=== PATIENT | male | born 1985 ===

== ENCOUNTER 2016-10-30 09:43 | Emergency (ER) | payer MEDICAID ==
[2016-10-30 09:44] VITALS: BMI 19.8
[2016-10-30 10:15] VITALS: RESP 20
--- NOTE | 2016-10-30 11:22 | ED PDOC ---
Arrival/HPI - General Chief Complaint: Abnormal Skin Integrity Time Seen by Provider: 10/30/16 11:19 Historian: Patient - History of Present Illness Narrative History of Present Illness (Text): 10/30/16 12:21 Patient with a one-week history of pruritic rash to the arms bilaterally. Patient states he he may have a history of MRSA. Patient states the rash starts out as a small pustule and he scratches it and the rash spreads. Patient denies numbness weakness or tingling in the family. Denies fevers or chills. Patient states no one else has similar symptoms. Patient states he's had something similar in the past and he applied hydrocortisone cream and the rash resolved. Denies fevers or chills. Denies pain. No other complaints Past Medical History - Provider Review Nursing Documentation Reviewed: Yes - Travel History Have you recently traveled outside [place] w/in the past 3 mons?: No - Past History Past History: No Previous - Infectious Disease Hx of Infectious Diseases: None - Tetanus Immunization Tetanus Immunization: Unknown - Past Medical History Past Medical History: No Previous - Cardiac Hx Cardiac Disorders: No - Pulmonary Hx Respiratory Disorders: No - Neurological Hx Neurological Disorder: No - HEENT Hx HEENT Disorder: No - Renal Hx Renal Disorder: No - Endocrine/Metabolic Hx Endocrine Disorders: No - Hematological/Oncological Hx Blood Disorders: No - Integumentary Hx Dermatological Disorder: No - Musculoskeletal/Rheumatological Hx Musculoskeletal Disorders: No - Gastrointestinal Hx Gastrointestinal Disorders: No - Genitourinary/Gynecological Hx Genitourinary Disorders: No - Psychiatric Hx Psychophysiologic Disorder: No Hx Anxiety: Yes Hx Bipolar Disorder: No Hx Depression: Yes Hx Emotional Abuse: No Hx Hallucinations: No Hx Panic Disorder: No Hx Post Traumatic Stress Disorder: No Hx Psychosis: No Hx Physical Abuse: No Hx Schizophrenia: No Hx Sexual Abuse: No Hx Substance Use: Yes (marijuana) - Past Surgical History Past Surgical History: No Previous - Anesthesia Hx Anesthesia: No Hx Anesthesia Reactions: No Hx Malignant Hyperthermia: No - Suicidal Assessment Feels Threatened In Home Enviroment: No Family/Social History - Physician Review Nursing Documentation Reviewed: Yes Family/Social History: Unknown Family HX Smoking Status: Former Smoker Hx Alcohol Use: No Hx Substance Use: Yes (marijuana) Hx Substance Use Treatment: No Allergies/Home Meds Allergies/Adverse Reactions: Allergies shellfish derived Allergy (Verified 10/30/16 10:09) ANAPHYLAXIS sulfamethoxazole [From Bactrim] Allergy (Verified 10/30/16 10:09) RASH trimethoprim [From Bactrim] Allergy (Verified 10/30/16 10:09) RASH Home Medications: Home Meds Medication Instructions Recorded Confirmed QUEtiapine [SEROquel] 50 mg PO HS 10/30/16 10/30/16 Review of Systems - Review of Systems Constitutional: absent: Fatigue, Fevers Respiratory: absent: SOB, Cough Cardiovascular: absent: Chest Pain, Palpitations Gastrointestinal: absent: Abdominal Pain, Nausea, Vomiting Genitourinary Male: absent: Dysuria, Frequency, Hematuria Musculoskeletal: absent: Arthralgias, Back Pain Skin: Rash, Pruritis Neurological: absent: Headache, Dizziness Psychiatric: absent: Anxiety, Depression, Suicidal Ideation Physical Exam Vital Signs Reviewed: Yes Vital Signs Temp Pulse Resp BP Pulse Ox 10/30/16 11:49 98 F 75 20 110/75 100 10/30/16 10:03 98.3 F 60 20 105/68 97 Temperature: Afebrile Blood Pressure: Normal Pulse: Regular Respiratory Rate: Normal Appearance: Positive for: Well-Appearing, Non-Toxic, Comfortable Pain Distress: None Mental Status: Positive for: Alert and Oriented X 3 - Systems Exam Head: Present: Atraumatic Mouth: Present: Moist Mucous Membranes Neck: Present: Normal Range of Motion Respiratory/Chest: Present: Clear to Auscultation, Good Air Exchange. No: Respiratory Distress, Accessory Muscle Use Cardiovascular: Present: Regular Rate and Rhythm, Normal S1, S2. No: Murmurs Upper Extremity: Present: Normal ROM. No: Tenderness, Swelling, Erythema Neurological: Present: GCS=15 Skin: Present: Warm, Dry, Rashes (multiple sporatic erythematous pustules on forearms bilaterally. right hand along dorsal aspect there is a area of multiple erythematous papules, no vesicles. non tender. ), Normal Color Medical Decision Making ED Course and Treatment: 10/30/16 pt is non toxic well appearing; no distress. c/o rash to both arms and right hand x 1 week. no trauma or injury. afebrile. will treat patient to cover for MRSA as patient with multiple pustules noted to both forearms and hx of multiple abscess in the past. will cover with hydrocortisone to the rash on the right hand due to recent exposure to new gloves. no pustules, no vesicles. advised patient to f/u with internet architect and pmd and return if symptoms worsen, persist or if new symptoms develop. Patient verbalizes understanding of discharge instructions and need for immediate followup. impression; rash clindamycin 3 times daily x 7 days hydrocortisone apply sparingly twice daily to affected area follow up with the primary care physician within the next 2 days follow up with the internet architect within the next 2 days return if symptoms worsen,persist or if new symptoms develop Disposition/Present on Arrival - Present on Arrival Any Indicators Present on Arrival: No History of DVT/PE: No History of Uncontrolled Diabetes: No Urinary Catheter: No History of Decub. Ulcer: No History Surgical Site Infection Following: None - Disposition Have Diagnosis and Disposition been Completed?: Yes Diagnosis: Rash Disposition: HOME/ ROUTINE Disposition Time: 11:19 Patient Plan: Discharge Condition: GOOD Discharge Instructions (ExitCare): Acute Rash (ED) Additional Instructions: clindamycin 3 times daily x 7 days hydrocortisone apply sparingly twice daily to affected area follow up with the primary care physician within the next 2 days follow up with the internet architect within the next 2 days return if symptoms worsen,persist or if new symptoms develop. Prescriptions: Clindamycin [Cleocin] 150 mg PO TID #21 cap Hydrocortisone 1% Cream [Cortizone 1% Cream] 1 appl TP BID #1 tube Referrals: Kamilla Conley MD [Staff Provider] - Follow up with primary Estuardo Hook MD [Staff Provider] - Follow up with primary
[2016-10-30 11:50] VITALS: BP 110/75; PULSE 75; TEMP 98; O2SAT 100
== END 2016-10-30 11:52 | disposition home or self-care (01) ==
LOC: ED 09:43
DX: R21 Rash and other nonspecific skin eruption (principal)

== ENCOUNTER 2017-02-27 14:24 | Emergency (ER) | payer MEDICAID ==
--- NOTE | 2017-02-27 14:38 | ED PDOC ---
Arrival/HPI - General Time Seen by Provider: 02/27/17 14:37 Historian: Patient - History of Present Illness Narrative History of Present Illness (Text): 02/27/17 14:37 31 y/o male, pmh including perianal abscess, allergic to shellfish and sulfa, c/ o rt. upper eyelid swelling x 2 days. Pt. has no fall or trauma, no change in vision, no painful movement of the eye, admits mild discharge, no headache, no night sweat, no fever or chills, no other medical or psychological complaints. Past Medical History - Provider Review Nursing Documentation Reviewed: Yes - Past History Past History: No Previous - Infectious Disease Hx of Infectious Diseases: None - Tetanus Immunization Tetanus Immunization: Unknown - Past Medical History Past Medical History: No Previous - Cardiac Hx Cardiac Disorders: No - Pulmonary Hx Respiratory Disorders: No - Neurological Hx Neurological Disorder: No - HEENT Hx HEENT Disorder: No - Renal Hx Renal Disorder: No - Endocrine/Metabolic Hx Endocrine Disorders: No - Hematological/Oncological Hx Blood Disorders: No - Integumentary Hx Dermatological Disorder: No - Musculoskeletal/Rheumatological Hx Musculoskeletal Disorders: No - Gastrointestinal Hx Gastrointestinal Disorders: No - Genitourinary/Gynecological Hx Genitourinary Disorders: No - Psychiatric Hx Psychophysiologic Disorder: Yes Hx Anxiety: No Hx Bipolar Disorder: Yes Hx Substance Use: Yes (marijuana) - Past Surgical History Past Surgical History: No Previous - Anesthesia Hx Anesthesia: No Hx Anesthesia Reactions: No Hx Malignant Hyperthermia: No - Suicidal Assessment Feels Threatened In Home Enviroment: No Family/Social History - Physician Review Nursing Documentation Reviewed: Yes Family/Social History: Unknown Family HX Smoking Status: Heavy Smoker > 10 Cigarettes Daily Hx Alcohol Use: No Hx Substance Use: Yes (marijuana) Hx Substance Use Treatment: No Allergies/Home Meds Allergies/Adverse Reactions: Allergies shellfish derived Allergy (Verified 10/30/16 10:09) ANAPHYLAXIS sulfamethoxazole [From Bactrim] Allergy (Verified 10/30/16 10:09) RASH trimethoprim [From Bactrim] Allergy (Verified 10/30/16 10:09) RASH Home Medications: Home Meds Medication Instructions Recorded Confirmed QUEtiapine [SEROquel] 100 mg PO HS 10/30/16 02/27/17 Review of Systems - Review of Systems Constitutional: absent: Fatigue, Fevers Eyes: absent: Vision Changes ENT: absent: Hearing Changes Respiratory: absent: SOB, Cough Cardiovascular: absent: Chest Pain Gastrointestinal: absent: Abdominal Pain, Nausea, Vomiting Skin: Skin Lesions. absent: Rash, Pruritis, Laceration, Abscess, Ulcer Neurological: absent: Headache Physical Exam Vital Signs Temp Pulse Resp BP Pulse Ox 02/27/17 14:46 98.3 F 89 18 115/69 97 - Systems Exam Head: Present: Atraumatic, Normocephalic Pupils: Present: PERRL Extroacular Muscles: Present: EOMI, Other (Rt. upper eyelid visible stye noted on the medial aspect with no periorbital cellulitis, no painful movement of the eye. ) Conjunctiva: Present: Normal Ears: Present: NORMAL TM, Normal Canal. No: Erythema Mouth: Present: Moist Mucous Membranes Neck: Present: Normal Range of Motion Respiratory/Chest: Present: Clear to Auscultation, Good Air Exchange. No: Respiratory Distress, Accessory Muscle Use Cardiovascular: Present: Regular Rate and Rhythm, Normal S1, S2. No: Murmurs Abdomen: Present: Normal Bowel Sounds. No: Tenderness, Distention, Peritoneal Signs Back: Present: Normal Inspection Upper Extremity: Present: Normal Inspection. No: Cyanosis, Edema Lower Extremity: Present: Normal Inspection. No: Edema Neurological: Present: GCS=15, Speech Normal, Motor Func Grossly Intact, Gait Normal, Memory Normal Skin: Present: Warm, Dry, Normal Color. No: Rashes Psychiatric: Present: Alert, Oriented x 3, Normal Insight, Normal Concentration Medical Decision Making ED Course and Treatment: 02/27/17 14:47 -Discharge home with opthalmic antibiotic oinment, cold compress, take tylenol or motrin for pain, follow up with your own pmd and opthalmologist within 2 days , return to the ER for any new or worsening signs or symptoms. 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 Disposition/Present on Arrival - Present on Arrival Any Indicators Present on Arrival: No History of DVT/PE: No History of Uncontrolled Diabetes: No Urinary Catheter: No History of Decub. Ulcer: No History Surgical Site Infection Following: None - Disposition Have Diagnosis and Disposition been Completed?: Yes Diagnosis: Stye Disposition: HOME/ ROUTINE Disposition Time: 14:48 Patient Plan: Discharge Condition: GOOD Additional Instructions: -Discharge home with opthalmic antibiotic oinment, cold compress, take tylenol or motrin for pain, follow up with your own pmd and opthalmologist within 2 days , return to the ER for any new or worsening signs or symptoms. Prescriptions: Erythromycin 0.5% [Ilytocin] 1 appful OD TID #5 g Referrals: Maury Rodriguez MD [Staff Provider] - Follow up with primary Forms: WORK NOTE
[2017-02-27 14:43] VITALS: BMI 18.4
[2017-02-27 14:47] VITALS: BP 115/69; PULSE 89; RESP 18; TEMP 98.3; O2SAT 97
== END 2017-02-27 15:05 | disposition home or self-care (01) ==
LOC: ED 14:24
DX: H00.011 Hordeolum externum right upper eyelid (principal)

== ENCOUNTER 2017-07-27 16:53 | Emergency (ER) | payer MEDICAID ==
[2017-07-27 16:53] VITALS: BMI 18.4
[2017-07-27 17:05] VITALS: TEMP 97.8
--- NOTE | 2017-07-27 20:09 | ED PDOC ---
Arrival/HPI - General Historian: Patient EM Caveat: Acuity of Condition <Shelby Renner - Last Filed: 07/28/17 00:14> <Sadiq Hough - Last Filed: 07/28/17 02:58> - General Chief Complaint: Chest Pain Time Seen by Provider: 07/27/17 17:51 - History of Present Illness Narrative History of Present Illness (Text): 07/27/17 19:54 Pt is a 31 yo M complaining of severe right axillary pain that radiates down the medial aspect of the arm and towards the chest x 1 week. Over a week ago, he noticed at work that he had a raised, red vein going from the armpit down to the elbow and thought he had a boil. Went to [facility] Emergency department and was evaluated via labs and US but did not find anything definitive. Pt was placed on what he thinks is clindamycin which helped resolved the redness but the pain remained and intensified. Denies shortness of breath, chest pain, nausea, vomiting or diarrhea, fever chills. Stats that when he sleeps, his arm with go to sleep (Shelby Renner) Past Medical History - Provider Review Nursing Documentation Reviewed: Yes - Travel History Have you recently traveled outside [place] w/in the past 3 mons?: Yes - Past History Past History: No Previous - Infectious Disease Hx of Infectious Diseases: None - Tetanus Immunization Tetanus Immunization: Unknown - Past Medical History Past Medical History: No Previous - Cardiac Hx Cardiac Disorders: No - Pulmonary Hx Respiratory Disorders: No - Neurological Hx Neurological Disorder: No - HEENT Hx HEENT Disorder: No - Renal Hx Renal Disorder: No - Endocrine/Metabolic Hx Endocrine Disorders: No - Hematological/Oncological Hx Blood Disorders: No - Integumentary Hx Dermatological Disorder: No - Musculoskeletal/Rheumatological Hx Musculoskeletal Disorders: No - Gastrointestinal Hx Gastrointestinal Disorders: No - Genitourinary/Gynecological Hx Genitourinary Disorders: No - Psychiatric Hx Psychophysiologic Disorder: Yes Hx Anxiety: No Hx Bipolar Disorder: Yes Hx Substance Use: Yes (marijuana) - Past Surgical History Past Surgical History: No Previous - Anesthesia Hx Anesthesia: No Hx Anesthesia Reactions: No Hx Malignant Hyperthermia: No - Suicidal Assessment Feels Threatened In Home Enviroment: No <Shelby Renner - Last Filed: 07/28/17 00:14> Family/Social History - Physician Review Nursing Documentation Reviewed: Yes Family/Social History: Unknown Family HX Smoking Status: Heavy Smoker > 10 Cigarettes Daily Hx Alcohol Use: No Hx Substance Use: Yes (marijuana) Hx Substance Use Treatment: No <Shelby Renner - Last Filed: 07/28/17 00:14> Allergies/Home Meds <Shelby Renner - Last Filed: 07/28/17 00:14> <Sadiq Hough - Last Filed: 07/28/17 02:58> Allergies/Adverse Reactions: Allergies shellfish derived Allergy (Verified 07/27/17 17:02) ANAPHYLAXIS sulfamethoxazole [From Bactrim] Allergy (Verified 07/27/17 17:02) RASH trimethoprim [From Bactrim] Allergy (Verified 07/27/17 17:02) RASH Home Medications: Home Meds Medication Instructions Recorded Confirmed Clindamycin [Cleocin] 150 mg PO Q6H 07/27/17 07/27/17 Review of Systems - Physician Review All systems were reviewed & negative as marked: Yes - Review of Systems Constitutional: Normal Eyes: Normal ENT: Normal Respiratory: Normal Cardiovascular: Normal Gastrointestinal: Normal Genitourinary Male: Normal Musculoskeletal: Normal Skin: Other (right medial arm pain and axilla pain) Neurological: Normal Endocrine: Normal Hemo/Lymphatic: Normal Psychiatric: Normal <Shelby Renner - Last Filed: 07/28/17 00:14> Physical Exam Vital Signs Reviewed: Yes Temperature: Afebrile Blood Pressure: Normal Pulse: Regular Respiratory Rate: Normal Appearance: Positive for: Well-Appearing, Non-Toxic, Comfortable Pain Distress: None Mental Status: Positive for: Alert and Oriented X 3 - Systems Exam Head: Present: Atraumatic, Normocephalic Pupils: Present: PERRL Extroacular Muscles: Present: EOMI Conjunctiva: Present: Normal Mouth: Present: Moist Mucous Membranes Neck: Present: Normal Range of Motion Respiratory/Chest: Present: Clear to Auscultation, Good Air Exchange. No: Respiratory Distress, Accessory Muscle Use Cardiovascular: Present: Regular Rate and Rhythm, Normal S1, S2. No: Murmurs Abdomen: Present: Normal Bowel Sounds. No: Tenderness, Distention, Peritoneal Signs Back: Present: Normal Inspection Upper Extremity: Present: Normal Inspection, Normal ROM, NORMAL PULSES, Tenderness (right axilla and medial aspect of proximal upper extremity), Neurovascularly Intact, Capillary Refill < 2s, Other (right proximal UE, medial contusion and palpable cord). No: Cyanosis, Edema Lower Extremity: Present: Normal Inspection. No: Edema Neurological: Present: GCS=15, CN II-XII Intact, Speech Normal, Motor Func Grossly Intact, Normal Sensory Function Skin: Present: Warm, Dry, Normal Color. No: Rashes Psychiatric: Present: Alert, Oriented x 3, Normal Insight, Normal Concentration <Shelby Renner - Last Filed: 07/28/17 00:14> Vital Signs Temp Pulse Resp BP Pulse Ox 07/27/17 23:25 70 16 116/87 200 H 07/27/17 17:04 97.8 F 67 18 110/75 100 Medical Decision Making - Lab Interpretations I have reviewed the lab results: Yes Interpretation: All labs normal - EKG Interpretation Interpreted by ED Physician: Yes (NSR) <Shelby Renner - Last Filed: 07/28/17 00:14> <Sadiq Hough - Last Filed: 07/28/17 02:58> ED Course and Treatment: 07/27/17 20:09 Impression: Pt is a 31 yo M complaining of severe right axillary pain that radiates down the medial aspect of the arm and towards the chest x 1 week. Plan: standard labs to r/o infection ekg to r/o cardiac events Progress Note: Pt was assessed by Dr. Hough who advised doppler for right medial arm; likely has superficial thrombophlebitis Duplex ordered and pending Dispo on toradol and zantac x 5 days with instructions to apply warm compress to arm F/U w Primary 07/27/17 22:12 (Shelby Renner) - Lab Interpretations Lab Results: 07/27/17 20:10 07/27/17 20:10 Lab Results 07/27/17 20:10: Sodium 137, Potassium 4.1, Chloride 103, Carbon Dioxide 24, Anion Gap 14, BUN 15, Creatinine 0.8, Est GFR ( Amer) > 60, Est GFR (Non- Af Amer) > 60, Random Glucose 78, Calcium 10.5, Total Bilirubin 0.7, AST 29, ALT 35, Alkaline Phosphatase 64, Total Protein 7.4, Albumin 4.6, Globulin 2.8, Albumin/Globulin Ratio 1.7 07/27/17 20:10: WBC 9.4, RBC 5.16, Hgb 15.7, Hct 44.0, MCV 85.3, MCH 30.4, MCHC 35.7, RDW 12.6, Plt Count 268, MPV 8.8, Gran % 58.3, Lymph % (Auto) 34.4, [place] % (Auto) 6.2 H, Eos % (Auto) 0.9 L, Baso % (Auto) 0.2, Gran # 5.47, Lymph # ( Auto) 3.2, [place] # (Auto) 0.6, Eos # (Auto) 0.1, Baso # (Auto) 0.02 - RAD Interpretation Radiology Orders: 07/27/17 22:01 DUPLEX UPPER EXTRM VEIN RIGHT [US] Stat - Medication Orders Current Medication Orders: Discontinued Medications Oxycodone/Acetaminophen (Percocet 5/325 Mg Tab) 1 tab PO STAT STA Stop: 07/27/17 23:22 Last Admin: 07/27/17 23:28 Dose: 1 tab MAR Pain Assessment Document 07/27/17 23:28 HI (Rec: 07/27/17 23:28 [id number]) Pain Reassessment Is this a pain reassessment? 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 <Sadiq Hough - Last Filed: 07/28/17 02:58> Disposition/Present on Arrival - Present on Arrival Any Indicators Present on Arrival: Yes History of DVT/PE: No History of Uncontrolled Diabetes: No Urinary Catheter: No History of Decub. Ulcer: No History Surgical Site Infection Following: None - Disposition Have Diagnosis and Disposition been Completed?: Yes Disposition Time: 22:30 Patient Plan: Discharge <Shelby Renner - Last Filed: 07/28/17 00:14> <Sadiq Hough - Last Filed: 07/28/17 02:58> - Disposition Diagnosis: Superficial thrombophlebitis of right upper extremity Disposition: HOME/ ROUTINE Condition: STABLE Discharge Instructions (ExitCare): Superficial Thrombophlebitis (ED) Additional Instructions: Please follow up with your primary care doctor in the next 2 days. If you have any alarming signs such as fever, chest pain, shortness of breath, return to the ER for evaluation. Take your medicine as instructed Prescriptions: Ketorolac Tromethamine [Toradol] 10 mg PO Q6 5 Days #20 tab Ranitidine HCl [Zantac 75] 75 mg PO BID 5 Days #20 tablet Forms: [employer] (Maltese), WORK NOTE
[2017-07-27 20:22] LABS: BASO # 0.02 K/mm3 (0.0-2.0); BASO % 0.2 % (0.0-3.0); EOS # 0.1 (0.0-0.7); EOS % 0.9 % (1.5-5.0); GRAN # 5.47 (1.4-6.5); GRAN % 58.3 % (50.0-68.0); HEMOGLOBIN 15.7 g/dL (14.0-18.0); LYMPH # 3.2 (1.2-3.4); LYMPH % 34.4 % (22.0-35.0); MEAN CELL VOLUME 85.3 fl (80.0-105.0); MEAN CORPUSCULAR HEMOGLOBIN 30.4 pg (25.0-35.0); MEAN CORPUSCULAR HGB CONC 35.7 g/dl (31.0-37.0); MEAN PLATELET VOLUME 8.8 fl (7.0-11.0); MONO # 0.6 (0.1-0.6); MONO % 6.2 % (1.0-6.0); RBC 5.16 10^6/uL (3.5-6.1); RED CELL DISTRIBUTION WIDTH 12.6 % (11.5-14.5); WHITE BLOOD COUNT 9.4 10^3/ul (4.5-11.0)
[2017-07-27 20:46] LABS: ALB/GLOB RATIO 1.7 (1.1-1.8); ALBUMIN 4.6 g/dL (3.0-4.8); ALT/SGPT 35 U/L (7-56); AST/SGOT 29 U/L (17-59); BLOOD UREA NITROGEN 15 mg/dL (7-21); CALCIUM 10.5 mg/dL (8.4-10.5); GFR AFRICAN-AMERICAN > 60; GFR NON-AFRICAN AMERICAN > 60
[2017-07-27] MEDS ORDERED: Oxycodone/Acetaminophen 5/325 mg Tab PO STA (23:21)
[2017-07-27] MEDS ORDERED: Oxycodone/Acetaminophen 5/325 mg Tab ONE (23:27)
[2017-07-27 23:41] VITALS: BP 116/87; PULSE 70; RESP 16; O2SAT 200
--- NOTE | 2017-07-28 03:39 | ED PDOC ---
Physical Exam Vital Signs Temp Pulse Resp BP Pulse Ox 07/27/17 23:25 70 16 116/87 200 H 07/27/17 17:04 97.8 F 67 18 110/75 100 Medical Decision Making - Lab Interpretations Lab Results: 07/27/17 20:10 07/27/17 20:10 Lab Results 07/27/17 20:10: Sodium 137, Potassium 4.1, Chloride 103, Carbon Dioxide 24, Anion Gap 14, BUN 15, Creatinine 0.8, Est GFR ( Amer) > 60, Est GFR (Non- Af Amer) > 60, Random Glucose 78, Calcium 10.5, Total Bilirubin 0.7, AST 29, ALT 35, Alkaline Phosphatase 64, Total Protein 7.4, Albumin 4.6, Globulin 2.8, Albumin/Globulin Ratio 1.7 07/27/17 20:10: WBC 9.4, RBC 5.16, Hgb 15.7, Hct 44.0, MCV 85.3, MCH 30.4, MCHC 35.7, RDW 12.6, Plt Count 268, MPV 8.8, Gran % 58.3, Lymph % (Auto) 34.4, [place] % (Auto) 6.2 H, Eos % (Auto) 0.9 L, Baso % (Auto) 0.2, Gran # 5.47, Lymph # ( Auto) 3.2, [place] # (Auto) 0.6, Eos # (Auto) 0.1, Baso # (Auto) 0.02 - RAD Interpretation Radiology Orders: 07/27/17 22:01 DUPLEX UPPER EXTRM VEIN RIGHT [US] Stat - Medication Orders Current Medication Orders: Discontinued Medications Oxycodone/Acetaminophen (Percocet 5/325 Mg Tab) 1 tab PO STAT STA Stop: 07/27/17 23:22 Last Admin: 07/27/17 23:28 Dose: 1 tab MAR Pain Assessment Document 07/27/17 23:28 HI (Rec: 07/27/17 23:28 [id number]) Pain Reassessment Is this a pain reassessment? No Disposition/Present on Arrival - Present on Arrival Any Indicators Present on Arrival: Yes History of DVT/PE: No History of Uncontrolled Diabetes: No Urinary Catheter: No History of Decub. Ulcer: No History Surgical Site Infection Following: None - Disposition Have Diagnosis and Disposition been Completed?: Yes Diagnosis: Superficial thrombophlebitis of right upper extremity Disposition: HOME/ ROUTINE Disposition Time: 23:00 Condition: STABLE Discharge Instructions (ExitCare): Superficial Thrombophlebitis (ED) Additional Instructions: Please follow up with your primary care doctor in the next 2 days. If you have any alarming signs such as fever, chest pain, shortness of breath, return to the ER for evaluation. Take your medicine as instructed Prescriptions: Ketorolac Tromethamine [Toradol] 10 mg PO Q6 5 Days #20 tab Ranitidine HCl [Zantac 75] 75 mg PO BID 5 Days #20 tablet Forms: [employer] (Citizen [place]), WORK NOTE
--- NOTE | 2017-07-28 16:04 | US ---
PROCEDURE: Right upper extremity venous US CLINICAL HISTORY: Arm pain and swelling Evaluate for deep venous thrombosis. PHYSICIAN(S): To Bullock M.D FINDINGS: The visualized rightinternal jugular vein is sonographically normal and compressible. No evidence of obstruction or thrombus is seen. The visualized segments of the right subclavian vein are patent with normal waveforms. No sonographic evidence of obstruction or thrombosis is seen. The visualized deep venous system of the proximal right upper extremity is sonographically normal and compressible. IMPRESSION: 1. No sonographic evidence for deep venous thrombosis in the visualized segments of the right upper extremity.
--- NOTE | 2017-07-28 16:18 | CARD ---
APPROVED REPORT EKG Measurement Heart [id number] <Conclusion> Normal sinus rhythm Incomplete right bundle branch block Possible Lateral infarct, age undetermined Abnormal ECG
== END 2017-07-27 23:25 | disposition home or self-care (01) ==
LOC: ED 16:53
DX: I80.8 Phlebitis and thrombophlebitis of other sites (principal)

== ENCOUNTER 2017-10-21 19:26 | Emergency (ER) | payer MEDICAID ==
[2017-10-21 19:44] VITALS: BMI 19.6
--- NOTE | 2017-10-21 19:59 | ED PDOC ---
Arrival/HPI - General Chief Complaint: Dental Pain Time Seen by Provider: 10/21/17 19:58 Historian: Patient - History of Present Illness Narrative History of Present Illness (Text): 10/21/17 19:59 This 32 yo male presents to this ED c/o left upper wisdom tooth pain and infection x 5 days. Patient admits similar symptom 1-2 years ago. Patient stated pain worsen 2 days ago. He denies fever or other complains. Time/Duration: Other (see hpi) Context: Home Past Medical History - Provider Review Nursing Documentation Reviewed: Yes - Past History Past History: No Previous - Infectious Disease Hx of Infectious Diseases: None - Tetanus Immunization Tetanus Immunization: Unknown - Past Medical History Past Medical History: No Previous - Cardiac Hx Cardiac Disorders: No - Pulmonary Hx Respiratory Disorders: No - Neurological Hx Neurological Disorder: No - HEENT Hx HEENT Disorder: No - Renal Hx Renal Disorder: No - Endocrine/Metabolic Hx Endocrine Disorders: No - Hematological/Oncological Hx Blood Disorders: No - Integumentary Hx Dermatological Disorder: No - Musculoskeletal/Rheumatological Hx Musculoskeletal Disorders: No - Gastrointestinal Hx Gastrointestinal Disorders: No - Genitourinary/Gynecological Hx Genitourinary Disorders: No - Psychiatric Hx Psychophysiologic Disorder: Yes Hx Anxiety: No Hx Bipolar Disorder: Yes Hx Substance Use: Yes (marijuana) - Past Surgical History Past Surgical History: No Previous - Anesthesia Hx Anesthesia: No Hx Anesthesia Reactions: No Hx Malignant Hyperthermia: No - Suicidal Assessment Feels Threatened In Home Enviroment: No Family/Social History - Physician Review Nursing Documentation Reviewed: Yes Family/Social History: Other (noncontributory) Smoking Status: Heavy Smoker > 10 Cigarettes Daily Hx Alcohol Use: No Hx Substance Use: Yes (marijuana) Hx Substance Use Treatment: No Allergies/Home Meds Allergies/Adverse Reactions: Allergies shellfish derived Allergy (Verified 10/21/17 19:41) ANAPHYLAXIS sulfamethoxazole [From Bactrim] Allergy (Verified 10/21/17 19:41) RASH trimethoprim [From Bactrim] Allergy (Verified 10/21/17 19:41) RASH Review of Systems - Review of Systems Constitutional: Normal. absent: Fatigue, Weight Change, Fevers Eyes: Normal ENT: Other (toothache) Respiratory: Normal. absent: SOB, Cough, Sputum, Wheezing Cardiovascular: Normal. absent: Chest Pain, Palpitations Gastrointestinal: Normal. absent: Abdominal Pain, Nausea, Vomiting Genitourinary Male: Normal. absent: Dysuria, Frequency, Hematuria Musculoskeletal: Normal Skin: Normal. absent: Rash, Cellulitis Neurological: Normal. absent: Headache, Dizziness Endocrine: Normal Hemo/Lymphatic: Normal Psychiatric: Normal Physical Exam Temperature: Afebrile Blood Pressure: Normal Pulse: Regular Respiratory Rate: Normal Appearance: Positive for: Well-Appearing, Non-Toxic, Comfortable Pain Distress: None Mental Status: Positive for: Alert and Oriented X 3 - Systems Exam Head: Present: Atraumatic, Normocephalic Pupils: Present: PERRL Extroacular Muscles: Present: EOMI Conjunctiva: Present: Normal Mouth: Present: Moist Mucous Membranes, Normal Lips, Normal Tounge. No: Drooling, Normal Teeth ((+) caries over tooth #16. No gum swelling. No facial swelling) Pharnyx: Present: Normal. No: ERYTHEMA, EXUDATE, TONSILS ENLARGED, Peritonsilar Swelling, Uvular Deviation, Muffled/Hoarse Voice, Strider Nose (External): Present: Atraumatic Nose (Internal): Present: Normal Inspection Neck: Present: Normal Range of Motion, Trachea Midline. No: Meningeal Signs, MIDLINE TENDERNESS, Paraspinal Tenderness, Lymphadenopathy Respiratory/Chest: Present: Clear to Auscultation, Good Air Exchange. No: Respiratory Distress, Accessory Muscle Use, Wheezes, Retracting, Rhonchi Cardiovascular: Present: Regular Rate and Rhythm, Normal S1, S2. No: Murmurs Upper Extremity: Present: Normal Inspection, Normal ROM Lower Extremity: Present: Normal Inspection, Normal ROM Neurological: Present: GCS=15, CN II-XII Intact, Speech Normal, Motor Func Grossly Intact, Normal Sensory Function, Normal Cerebellar Funct, Gait Normal Skin: Present: Warm, Dry, Normal Color. No: Rashes Psychiatric: Present: Alert, Oriented x 3, Normal Insight, Normal Concentration Medical Decision Making ED Course and Treatment: 10/21/17 20:14 Re-evaluation. Patient feels better. Discussed results and plan with patient who expresses understanding. All questions answered and there is agreement with the plan to discharge home with instructions. Patient stable for discharge. Return if symptoms persist or worsen. Patient was recommended to contact dental surgeon to have wisdom tooth extracted within 5 days. To take medication as instructed. To return to emergency if tooth pain worsen Re-evaluation Time: 20:14 Reassessment Condition: Re-examined, Improved - Medication Orders Current Medication Orders: Clindamycin HCl (Cleocin) 300 mg PO STAT STA PRN Reason: Protocol Stop: 10/21/17 20:00 Ibuprofen (Motrin Tab) 600 mg PO STAT STA Stop: 10/21/17 20:02 Disposition/Present on Arrival - Present on Arrival Any Indicators Present on Arrival: No History of DVT/PE: No History of Uncontrolled Diabetes: No Urinary Catheter: No History of Decub. Ulcer: No History Surgical Site Infection Following: None - Disposition Have Diagnosis and Disposition been Completed?: Yes Diagnosis: Dental caries Disposition: HOME/ ROUTINE Disposition Time: 20:18 Patient Plan: Discharge Condition: GOOD Discharge Instructions (ExitCare): Tooth Decay, Adult Additional Instructions: Call private doctor for follow up visit in 1-2 days. Call private dental surgeon to set up an appointment to have your wisdom tooth removed. Take medication as instructed. Do not drive or operate machinery if you Take Tylenol with codeine. Return to emergency if infection worsen. Prescriptions: Acetaminophen with Codeine [Tylenol with Codeine #3 Tablet] 1 each PO Q4H PRN # 12 tablet PRN Reason: Pain, Severe (8-10) Chlorhexidine 0.12% [Peridex] 15 ml PO BID #1 bottle Clindamycin [Cleocin] 300 mg PO QID #28 cap Ibuprofen [Motrin] 600 mg PO Q8 PRN #20 tab PRN Reason: Pain, Severe (8-10) Referrals: Adriano Dejesus MD [Primary Care Provider] - Follow up with primary Forms: [facility] ([place]ian), WORK NOTE
[2017-10-21 20:10] VITALS: BP 126/71; PULSE 70; RESP 18; TEMP 98.6; O2SAT 98
== END 2017-10-21 20:28 | disposition home or self-care (01) ==
LOC: ED 19:26
DX: K02.9 Dental caries, unspecified (principal); F17.210 Nicotine dependence, cigarettes, uncomplicated

== ENCOUNTER 2017-11-25 13:22 | Emergency (ER) | payer MEDICAID ==
[2017-11-25 13:24] VITALS: BMI 18.4
--- NOTE | 2017-11-25 13:44 | ED PDOC ---
Arrival/HPI - General Chief Complaint: Dental Pain Time Seen by Provider: 11/25/17 13:35 Historian: Patient - History of Present Illness Time/Duration: Other (several days) Symptom Onset: Gradual Symptom Course: Worsening Quality: Aching Severity Level: Moderate Activities at Onset: Rest Associated Symptoms (Text): 11/25/17 13:39 Patient complains of a several day history of right upper posterior wisdom tooth pain and swelling and redness. He was seen by his dentist several weeks ago for left upper posterior wisdom tooth pain and swelling. He was referred to an oral surgeon, but has not seen him yet. No fever. No facial swelling or redness. Past Medical History - Past History Past History: No Previous - Infectious Disease Hx of Infectious Diseases: None - Tetanus Immunization Tetanus Immunization: Unknown - Past Medical History Past Medical History: No Previous - Cardiac Hx Cardiac Disorders: No - Pulmonary Hx Respiratory Disorders: No - Neurological Hx Neurological Disorder: No - HEENT Hx HEENT Disorder: No - Renal Hx Renal Disorder: No - Endocrine/Metabolic Hx Endocrine Disorders: No - Hematological/Oncological Hx Blood Disorders: No - Integumentary Hx Dermatological Disorder: No - Musculoskeletal/Rheumatological Hx Musculoskeletal Disorders: No - Gastrointestinal Hx Gastrointestinal Disorders: No - Genitourinary/Gynecological Hx Genitourinary Disorders: No - Psychiatric Hx Psychophysiologic Disorder: Yes Hx Anxiety: No Hx Bipolar Disorder: Yes Hx Substance Use: Yes (marijuana) - Past Surgical History Past Surgical History: No Previous - Anesthesia Hx Anesthesia: No Hx Anesthesia Reactions: No Hx Malignant Hyperthermia: No - Suicidal Assessment Feels Threatened In Home Enviroment: No Family/Social History - Physician Review Nursing Documentation Reviewed: Yes Family/Social History: Unknown Family HX Smoking Status: Heavy Smoker > 10 Cigarettes Daily Hx Alcohol Use: No Hx Substance Use: Yes (marijuana) Hx Substance Use Treatment: No Allergies/Home Meds Allergies/Adverse Reactions: Allergies shellfish derived Allergy (Verified 11/25/17 13:38) ANAPHYLAXIS sulfamethoxazole [From Bactrim] Allergy (Verified 11/25/17 13:38) RASH trimethoprim [From Bactrim] Allergy (Verified 11/25/17 13:38) RASH Review of Systems - Physician Review All systems were reviewed & negative as marked: Yes Physical Exam Vital Signs Temp Pulse Resp BP Pulse Ox 11/25/17 13:34 98.3 F 58 L 16 111/70 98 Temperature: Afebrile Blood Pressure: Normal Pulse: Regular Respiratory Rate: Normal Appearance: Positive for: Well-Appearing, Non-Toxic, Uncomfortable Pain Distress: Mild Mental Status: Positive for: Alert and Oriented X 3 - Systems Exam Head: Present: Atraumatic, Normocephalic Ears: Present: NORMAL TM, Normal Canal. No: Erythema, TM Bulging Mouth: Present: Moist Mucous Membranes, Other (right upper impacted wisdom tooth with some tenderness and erythema) Pharnyx: No: ERYTHEMA, EXUDATE, TONSILS ENLARGED, Peritonsilar Swelling, Uvular Deviation, Muffled/Hoarse Voice, Strider, Soft Palate/Uvular Edema Neck: Present: Normal Range of Motion Medical Decision Making ED Course and Treatment: 11/25/17 13:41 Patient was instructed that he must follow-up with the oral surgeon as referred to by his dentist. Disposition/Present on Arrival - Present on Arrival Any Indicators Present on Arrival: No History of DVT/PE: No History of Uncontrolled Diabetes: No Urinary Catheter: No History of Decub. Ulcer: No History Surgical Site Infection Following: None - Disposition Have Diagnosis and Disposition been Completed?: Yes Diagnosis: Toothache Disposition: HOME/ ROUTINE Disposition Time: 13:41 Patient Plan: Discharge Condition: GOOD Discharge Instructions (ExitCare): Dental Pain (DC) Prescriptions: Amoxicillin [Amoxil 250 mg Cap] 250 mg PO TID #21 cap Tramadol HCl [Ultram] 50 mg PO Q6 PRN #10 tab PRN Reason: Pain
[2017-11-25 14:00] VITALS: BP 115/70; PULSE 60; RESP 18; TEMP 98; O2SAT 99
== END 2017-11-25 13:58 | disposition home or self-care (01) ==
LOC: ED 13:22
DX: K08.89 Other specified disorders of teeth and supporting structures (principal)

== ENCOUNTER 2018-05-10 14:40 | Emergency (ER) | payer MEDICAID ==
--- NOTE | 2018-05-10 15:07 | ED PDOC ---
Arrival/HPI - General Historian: Patient - History of Present Illness Narrative History of Present Illness (Text): 05/10/18 15:03 32yo male with no pmhx who present to ED for complaint of right sided lower gum pain s/p tooth extraction on Tuesday. States the extraction was done at [facility]. He however denies swelling, fever, chills, any other complaint. Past Medical History - Provider Review Nursing Documentation Reviewed: Yes - Past History Past History: No Previous - Infectious Disease Hx of Infectious Diseases: None - Tetanus Immunization Tetanus Immunization: Unknown - Past Medical History Past Medical History: No Previous - Cardiac Hx Cardiac Disorders: No - Pulmonary Hx Respiratory Disorders: No - Neurological Hx Neurological Disorder: No - HEENT Hx HEENT Disorder: No - Renal Hx Renal Disorder: No - Endocrine/Metabolic Hx Endocrine Disorders: No - Hematological/Oncological Hx Blood Disorders: No - Integumentary Hx Dermatological Disorder: No - Musculoskeletal/Rheumatological Hx Musculoskeletal Disorders: No - Gastrointestinal Hx Gastrointestinal Disorders: No - Genitourinary/Gynecological Hx Genitourinary Disorders: No - Psychiatric Hx Psychophysiologic Disorder: Yes Hx Anxiety: No Hx Bipolar Disorder: Yes Hx Substance Use: Yes (marijuana) - Past Surgical History Past Surgical History: No Previous - Anesthesia Hx Anesthesia: No Hx Anesthesia Reactions: No Hx Malignant Hyperthermia: No - Suicidal Assessment Feels Threatened In Home Enviroment: No Family/Social History - Physician Review Nursing Documentation Reviewed: Yes Family/Social History: Unknown Family HX Smoking Status: Heavy Smoker > 10 Cigarettes Daily Hx Alcohol Use: No Hx Substance Use: Yes (marijuana) Hx Substance Use Treatment: No Allergies/Home Meds Allergies/Adverse Reactions: Allergies shellfish derived Allergy (Verified 11/25/17 13:38) ANAPHYLAXIS sulfamethoxazole [From Bactrim] Allergy (Verified 11/25/17 13:38) RASH trimethoprim [From Bactrim] Allergy (Verified 11/25/17 13:38) RASH Review of Systems - Physician Review All systems were reviewed & negative as marked: Yes - Review of Systems Constitutional: Normal Eyes: Normal ENT: Other (Gum pain) Respiratory: Normal Cardiovascular: Normal Gastrointestinal: Normal Genitourinary Male: Normal Musculoskeletal: Normal Skin: Normal Neurological: Normal Endocrine: Normal Hemo/Lymphatic: Normal Psychiatric: Normal Physical Exam Vital Signs Reviewed: Yes Temperature: Afebrile Blood Pressure: Normal Pulse: Regular Respiratory Rate: Normal Appearance: Positive for: Well-Appearing, Non-Toxic, Comfortable Pain Distress: None Mental Status: Positive for: Alert and Oriented X 3 - Systems Exam Head: Present: Atraumatic, Normocephalic Pupils: Present: PERRL Extroacular Muscles: Present: EOMI Conjunctiva: Present: Normal Mouth: Present: Moist Mucous Membranes, Normal Teeth (No gum swelling. No loose tooth. ) Neck: Present: Normal Range of Motion Respiratory/Chest: Present: Clear to Auscultation, Good Air Exchange. No: Respiratory Distress, Accessory Muscle Use Cardiovascular: Present: Regular Rate and Rhythm, Normal S1, S2. No: Murmurs Abdomen: No: Tenderness, Distention, Peritoneal Signs Back: Present: Normal Inspection Upper Extremity: Present: Normal Inspection. No: Cyanosis, Edema Lower Extremity: Present: Normal Inspection. No: Edema Neurological: Present: GCS=15, CN II-XII Intact, Speech Normal Skin: Present: Warm, Dry, Normal Color. No: Rashes Psychiatric: Present: Alert, Oriented x 3, Normal Insight, Normal Concentration Disposition/Present on Arrival - Present on Arrival Any Indicators Present on Arrival: No History of DVT/PE: No History of Uncontrolled Diabetes: No Urinary Catheter: No History Surgical Site Infection Following: None - Disposition Have Diagnosis and Disposition been Completed?: Yes Diagnosis: Pain in gums, Dental caries Disposition: HOME/ ROUTINE Disposition Time: 15:15 Patient Plan: Discharge Patient Problems: Current Active Problems Problem Status Onset Dental caries Acute Pain in gums Acute Condition: STABLE Discharge Instructions (ExitCare): Dental Pain Additional Instructions: Follow up with your Dentist Return to ED for any new symptoms Prescriptions: Ibuprofen [Motrin Tab] 800 mg PO Q6 #15 tab Referrals: Kena Simmons MD [Medical Doctor] - Follow up with primary
[2018-05-10 15:10] VITALS: BP 121/68; PULSE 52; RESP 17; TEMP 98.3; O2SAT 99; BMI 19.6
== END 2018-05-10 16:10 | disposition home or self-care (01) ==
LOC: ED 14:40
DX: K02.9 Dental caries, unspecified (principal); K06.9 Disorder of gingiva and edentulous alveolar ridge, unspecified

== ENCOUNTER 2018-11-23 08:03 | Emergency (ER) | payer MEDICAID ==
[2018-11-23 08:14] VITALS: BMI 19.9
[2018-11-23 08:18] VITALS: RESP 18; TEMP 99
--- NOTE | 2018-11-23 08:40 | ED PDOC ---
Arrival/HPI - General Chief Complaint: Medical Clearance Time Seen by Provider: 11/23/18 08:29 Historian: Patient - History of Present Illness Narrative History of Present Illness (Text): 11/23/18 08:40 33 year old male with no significant past medical history, presents to the emergency department complaining of sore throat, productive cough, body aches, and runny nose that began this morning. Patient denies any sick contact or recent travel. Patient denies any fever, chills, chest pain, shortness of breath, nausea, vomiting, diarrhea, urinary symptoms, back pain, neck pain, headache, dizziness, or any other complaints. PMD: Dr. Michaela Dejesus Time/Duration: Other (this morning) Symptom Onset: Sudden Symptom Course: Unchanged Activities at Onset: Light Context: Home Past Medical History - Provider Review Nursing Documentation Reviewed: Yes - Past History Past History: No Previous - Infectious Disease Hx of Infectious Diseases: None - Tetanus Immunization Tetanus Immunization: Unknown - Past Medical History Past Medical History: No Previous - Cardiac Hx Cardiac Disorders: No - Pulmonary Hx Respiratory Disorders: No - Neurological Hx Neurological Disorder: No - HEENT Hx HEENT Disorder: No - Renal Hx Renal Disorder: No - Endocrine/Metabolic Hx Endocrine Disorders: No - Hematological/Oncological Hx Blood Disorders: No - Integumentary Hx Dermatological Disorder: No - Musculoskeletal/Rheumatological Hx Musculoskeletal Disorders: No - Gastrointestinal Hx Gastrointestinal Disorders: No - Genitourinary/Gynecological Hx Genitourinary Disorders: No - Psychiatric Hx Psychophysiologic Disorder: Yes Hx Anxiety: No Hx Bipolar Disorder: Yes Hx Substance Use: Yes (marijuana) - Past Surgical History Past Surgical History: No Previous - Anesthesia Hx Anesthesia: No Hx Anesthesia Reactions: No Hx Malignant Hyperthermia: No - Suicidal Assessment Feels Threatened In Home Enviroment: No Family/Social History - Physician Review Nursing Documentation Reviewed: Yes Family/Social History: No Known Family HX Smoking Status: Former Smoker Hx Alcohol Use: No Hx Substance Use: Yes (marijuana) Hx Substance Use Treatment: No Allergies/Home Meds Allergies/Adverse Reactions: Allergies shellfish derived Allergy (Verified 11/23/18 08:14) ANAPHYLAXIS sulfamethoxazole [From Bactrim] Allergy (Verified 11/23/18 08:14) RASH trimethoprim [From Bactrim] Allergy (Verified 11/23/18 08:14) RASH Review of Systems - Physician Review All systems were reviewed & negative as marked: Yes - Review of Systems Constitutional: absent: Fevers, Other (chills) ENT: Sore Throat, Rhinorrhea Respiratory: Cough. absent: SOB Cardiovascular: absent: Chest Pain Gastrointestinal: absent: Diarrhea, Nausea, Vomiting Genitourinary Male: absent: Dysuria, Frequency, Hematuria Musculoskeletal: Other (malaise). absent: Back Pain, Neck Pain Neurological: absent: Headache, Dizziness Physical Exam - Physical Exam Narrative Physical Exam (Text): Gen: VS reviewed, alert, well developed, well nourished, nontoxic, mild distress. ENT: mild redness to the posterior pharynx. Eye: EOMI, PERRL. Neck: no JVD, supple, no adenopathy. CV: regular rate, regular rhythm, no rubs, no murmur, no gallops, S1, S2, pulses equal and strong. Pulm: no distress, clear to auscultation, no wheeze, no rhonchi, breath sounds equal, no rales. Abd: soft, nontender, no guarding, no rebound, no rigidity, normal bowel sounds. Ext: no edema. Skin: good color, no rash, no cyanosis. Psych: responds appropriately to questions, normal affect. Neuro: oriented x 3, CN2-12 intact grossly, motor intact, sensation intact. Vital Signs Reviewed: Yes Vital Signs Temp Pulse Resp BP Pulse Ox 11/23/18 08:15 99.0 F 68 18 114/70 98 Temperature: Afebrile Blood Pressure: Normal Pulse: Regular Respiratory Rate: Normal Medical Decision Making ED Course and Treatment: 11/23/18 08:40 Impression: 33 year old male presents complaining of sore throat, productive cough, malaise, and rhinorrhea that began this morning Plan: -- Rapid Strep -- Lidocaine viscous -- Throat culture -- Reassess and disposition Progress Notes: 11/23/18 09:49 nontoxic appearing, presentation consistent with viral syndrome, supportive care, patient aware of pending throat culture, stable for dc. - Scribe Statement The provider has reviewed the documentation as recorded by the Javon Sullivan Provider Scribe Attestation: All medical record entries made by the Scribbrianna were at my direction and personally dictated by me. I have reviewed the chart and agree that the record accurately reflects my personal performance of the history, physical exam, medical decision making, and the department course for this patient. I have also personally directed, reviewed, and agree with the discharge instructions and disposition. Disposition/Present on Arrival - Present on Arrival Any Indicators Present on Arrival: No History of DVT/PE: No History of Uncontrolled Diabetes: No Urinary Catheter: No History of Decub. Ulcer: No History Surgical Site Infection Following: None - Disposition Have Diagnosis and Disposition been Completed?: Yes Diagnosis: Viral syndrome Disposition: HOME/ ROUTINE Disposition Time: 09:50 Patient Plan: Discharge Condition: STABLE Discharge Instructions (ExitCare): Viral Syndrome (DC) Additional Instructions: stay well hydrated (water. return for any new or worsening symptoms. Prescriptions: Lidocaine 2% Viscous 15 ml MM Q3H #1 bottle Ondansetron [Zofran] 4 mg PO Q8H #12 tab Forms: [facility] ([place]namese), WORK NOTE
[2018-11-23] MEDS ORDERED: Lidocaine 2% Viscous 100 ml PO STA (08:46)
[2018-11-23 10:12] VITALS: BP 118/79; PULSE 88; O2SAT 99
== END 2018-11-23 10:13 | disposition home or self-care (01) ==
LOC: ED 08:03
DX: B34.9 Viral infection, unspecified (principal)